=== PATIENT | male | born 1940 | race Hispanic/Latino ===

== ENCOUNTER → 2018-01-10 | Outpatient (CLI) | payer MEDICARE, OTHER ==
[~2018-01-10] VITALS: Ht 165.1 cm; Wt 86.2 kg
[~2018-01-10] MED LIST: REGADENOSON 0.4 MG/5 ML PF SYG IVP SCH
== END | disposition home or self-care (01) ==
LOC: SHCH 09:08
PROVIDERS: ATTEND Internal Medicine Cardiovascular Disease
DX: I21.4 Non-ST elevation (NSTEMI) myocardial infarction (principal)
CPT/HCPCS: 78452; 93017; 96374; A9500 ×2; J2785

== ENCOUNTER 2021-03-19 19:09 | Inpatient (IN) | payer MEDICARE, OTHER ==
[~2021-03-19] VITALS: Ht 165.1 cm; Wt 89.9 kg
[2021-03-19] MEDS ORDERED: HYDROCODONE/ACETAMINOPHEN 10/325 MG TAB PO SCH (20:00)
[2021-03-19 20:21] LABS: BASOPHILS % (AUTO) 0.6 % (0.0-5.0); EOSINOPHILS % (AUTO) 6.9 % (0.0-8.0); HEMATOCRIT 42.5 % (42-54); LYMPHOCYTES % (AUTO) 16.2 % (21.0-51.0); MEAN CORPUSCULAR HEMOGLOBIN 30.3 pg (27.0-33.0); MEAN CORPUSCULAR HGB CONC 32.2 g/dL (32.0-36.0); MONOCYTES % (AUTO) 9.1 % (3.0-13.0); NEUTROPHILS % (AUTO) 66.8 % (40.0-77.0); PLATELET COUNT (AUTO) 243 K/uL (130-400); RED BLOOD CELL COUNT(AUTO) 4.52 MIL/uL (4.50-6.20); RED CELL DISTRIBUTION WIDTH 13.3 % (11.0-15.5); WHITE BLOOD COUNT (AUTO) 12.1 K/uL (4.8-10.8)
[2021-03-19 20:33] LABS: CREATININE 1.8 mg/dL (0.5-1.5); POTASSIUM 4.4 mmol/L (3.5-5.1)
[2021-03-19 20:39] LABS: ALBUMIN 3.5 g/dL (3.5-5.0); BILIRUBIN,TOTAL 0.2 mg/dL (0.2-1.0); TOTAL PROTEIN, SERUM 7.7 g/dL (6.0-8.3)
[2021-03-19] MEDS: TETANUS/DIPHTHERIA TOXOID [ADULT] 0.5 ML VIAL IM SCH (20:48)
[2021-03-19] MEDS: ZOSYN 3.375GM +NS 50ML IV SCH (20:49)
[2021-03-19] MEDS ORDERED: CEPH500B PO (21:08)
[2021-03-19] MEDS ORDERED: NITROGLYCERIN 1GM OINT 1 INCH/1GM TD ONE ×2 (22:59→23:00)
[2021-03-19] MEDS ORDERED: ASPIRIN 325MG TAB ONE (22:59)
[2021-03-19] MEDS ORDERED: ASPIRIN 325MG TAB PO ONE (23:00)
[2021-03-20] MEDS ORDERED: 0.9%NACL 1000ML 1,000 ML IV SCH
[2021-03-20] MEDS ORDERED: ONDANSETRON 4MG INJ IV PRN
[2021-03-20] MEDS ORDERED: HYDRALAZINE 20MG/ML VIAL IV PRN
[2021-03-20] MEDS ORDERED: GUAIFENESIN-DM 200/20 MG 10 ML PO PRN
[2021-03-20] MEDS ORDERED: ACETAMINOPHEN 325 MG TAB PO PRN
[2021-03-20] MEDS ORDERED: NITROGLYCERIN 0.4 MG SL TAB SL PRN
[2021-03-20] MEDS ORDERED: MORPHINE 2 MG SYG IV PRN
[2021-03-20] MEDS: ZOSYN 3.375GM +NS 50ML IV SCH ×3 (05:40→21:29)
[2021-03-20 06:45] LABS: BASOPHILS % (AUTO) 0.5 % (0.0-5.0); EOSINOPHILS % (AUTO) 8.7 % (0.0-8.0); HEMATOCRIT 37.3 % (42-54); LYMPHOCYTES % (AUTO) 14.9 % (21.0-51.0); MEAN CORPUSCULAR HEMOGLOBIN 30.5 pg (27.0-33.0); MEAN CORPUSCULAR HGB CONC 31.6 g/dL (32.0-36.0); MEAN CORPUSCULAR VOLUME 96.4 fL (79-99); MONOCYTES % (AUTO) 9.3 % (3.0-13.0); PLATELET COUNT (AUTO) 180 K/uL (130-400); RED BLOOD CELL COUNT(AUTO) 3.87 MIL/uL (4.50-6.20); RED CELL DISTRIBUTION WIDTH 13.5 % (11.0-15.5)
[2021-03-20 06:56] LABS: HEMOGLOBIN A1C 8.3 % (4.0-6.0)
[2021-03-20] MEDS: INSULIN HUMULIN R 100 UNIT/ML 3ML SQ SCH ×4 (07:30→21:50)
[2021-03-20 07:34] LABS: BILIRUBIN,TOTAL 0.3 mg/dL (0.2-1.0); CREATININE 1.7 mg/dL (0.5-1.5); MAGNESIUM 1.9 mg/dL (1.80-2.40); POTASSIUM 4.8 mmol/L (3.5-5.1); TOTAL PROTEIN, SERUM 5.9 g/dL (6.0-8.3)
[2021-03-20 07:55] LABS: APPEARANCE,URINE Clear (CLEAR); BILIRUBIN,URINE Negative (NEGATIVE); COLOR,URINE Yellow (YELLOW); GLUCOSE, URINE (UA) 500 mg/dL (NEGATIVE); KETONES,URINE Negative (NEGATIVE); LEUKOCYTE ESTERASE ,URINE Negative (NEGATIVE); NITRATE,URINE Negative (NEGATIVE); OCCULT BLOOD,URINE Negative (NEGATIVE); PH,URINE 5.5 (5.0-8.0); PROTEIN,URINE POS 2+ mg/dL (NEGATIVE); UROBILINOGEN,URINE 0.2 mg/dL (0.2-1.0)
[2021-03-20 08:05] LABS: BACTERIA,URINE None Seen /HPF (None Seen); RBC,URINE 0-1 /HPF (0-1); SQUAMOUS EPITHELIAL CELL,UR 0-2 /HPF (0-2); WBC,URINE 0-1 /HPF (0-1)
[2021-03-20] MEDS: FAMOTIDINE 20MG VIAL IV SCH ×2 (09:08→21:29)
[2021-03-20] MEDS: HEPARIN 5,000 UNIT VIAL SQ SCH ×3 (09:08→21:50)
[2021-03-20] MEDS ORDERED: 0.9% NACL 250ML IVPB SCH (10:30)
[2021-03-20] MEDS ORDERED: DOXYCYCLINE 100MG IVPB (VIAL) IVPB SCH (10:30)
[2021-03-20] MEDS: 0.9% NACL 250ML 250 ML IV SCH ×2 (12:13→21:29)
[2021-03-20] MEDS: DOXYCYCLINE 100MG+NS 250ML IV SCH ×2 (12:13→21:29)
[2021-03-20] MEDS ORDERED: 0.9%NACL 50ML 50 ML IV ONE (14:29)
[2021-03-20 16:30] VITALS: BP 157/66
[2021-03-20] MEDS: CLOPIDOGREL 75MG TAB PO SCH (18:59)
[2021-03-20 20:00] VITALS: BP 157/68
[2021-03-20] MEDS: TETANUS/DIPHTHERIA TOXOID [ADULT] 0.5 ML VIAL IM SCH (20:00)
[2021-03-20] MEDS: METOPROLOL TARTRATE 50 MG TAB PO SCH (21:29)
[2021-03-20] MEDS ORDERED: INSULIN GLARGINE 100 UNITS/ML 10 ML VIAL SQ ONE (22:30)
[2021-03-20] MEDS ORDERED: AMLODIPINE 5 MG TAB PO ONE (22:30)
[2021-03-20 23:57] VITALS: BP 130/61
[2021-03-21 04:00] VITALS: BP 143/65
[2021-03-21] MEDS ORDERED: METF-446 PO (04:04)
[2021-03-21] MEDS ORDERED: FOLI1TAB85 PO (04:04)
[2021-03-21] MEDS ORDERED: TAMS-1 PO (04:04)
[2021-03-21] MEDS ORDERED: LISI40TA9 PO (04:04)
[2021-03-21] MEDS ORDERED: [UNRECOGNIZED DRUG - CODE] PO (04:04)
[2021-03-21] MEDS ORDERED: METO50TA18 PO (04:04)
[2021-03-21] MEDS ORDERED: FENO135C4 PO (04:04)
[2021-03-21] MEDS ORDERED: CLOP75TA32 PO (04:04)
[2021-03-21] MEDS: INSULIN HUMULIN R 100 UNIT/ML 3ML SQ SCH ×5 (05:31→21:06)
[2021-03-21] MEDS: ZOSYN 3.375GM +NS 50ML IV SCH ×3 (06:14→20:54)
[2021-03-21 06:36] LABS: BASOPHILS % (AUTO) 0.8 % (0.0-5.0); HEMATOCRIT 36.9 % (42-54); LYMPHOCYTES % (AUTO) 12.9 % (21.0-51.0); MEAN CORPUSCULAR HEMOGLOBIN 30.2 pg (27.0-33.0); MEAN CORPUSCULAR HGB CONC 32.5 g/dL (32.0-36.0); MEAN CORPUSCULAR VOLUME 92.9 fL (79-99); NEUTROPHILS % (AUTO) 67.7 % (40.0-77.0); PLATELET COUNT (AUTO) 195 K/uL (130-400); RED BLOOD CELL COUNT(AUTO) 3.97 MIL/uL (4.50-6.20); RED CELL DISTRIBUTION WIDTH 13.3 % (11.0-15.5)
[2021-03-21 06:53] LABS: CREATININE 1.6 mg/dL (0.5-1.5); POTASSIUM 4.2 mmol/L (3.5-5.1)
[2021-03-21 08:00] VITALS: BP 151/67
[2021-03-21] MEDS: FENOFIBRIC ACID 135 MG PO SCH (09:00)
[2021-03-21] MEDS: CLOPIDOGREL 75MG TAB PO SCH (09:38)
[2021-03-21] MEDS: METOPROLOL TARTRATE 50 MG TAB PO SCH ×2 (09:38→20:55)
[2021-03-21] MEDS: FAMOTIDINE 20MG VIAL IV SCH ×2 (09:38→20:55)
[2021-03-21] MEDS: DOXYCYCLINE 100MG+NS 250ML IV SCH ×2 (09:38→20:54)
[2021-03-21] MEDS: HEPARIN 5,000 UNIT VIAL SQ SCH ×3 (09:52→21:05)
[2021-03-21] MEDS: 0.9% NACL 250ML 250 ML IV SCH ×2 (10:48→20:54)
[2021-03-21 12:00] VITALS: BP 148/67
[2021-03-21] MEDS: AMLODIPINE 5 MG TAB PO SCH ×2 (12:31→20:55)
[2021-03-21] MEDS: Vitamin B Complex/Vit C/Folic Acid PO SCH (12:31)
[2021-03-21] MEDS: DIGOXIN 125 MCG TABLET PO SCH (15:53)
[2021-03-21 16:00] VITALS: BP 140/65
[2021-03-21 20:00] VITALS: BP 140/67
[2021-03-21] MEDS: TAMSULOSIN HCL 0.4 MG CAP.ER.24H PO SCH (20:55)
[2021-03-21] MEDS ORDERED: TIMOLOL MALEATE 0.5% 5 ML BOTTLE OS SCH (21:00)
[2021-03-21] MEDS: INSULIN GLARGINE 100 UNITS/ML 10 ML VIAL SQ SCH (21:07)
[2021-03-22] VITALS: BP 118/57
[2021-03-22 04:00] VITALS: BP 127/58
[2021-03-22] MEDS: ZOSYN 3.375GM +NS 50ML IV SCH ×3 (05:14→21:00)
[2021-03-22] MEDS: INSULIN HUMULIN R 100 UNIT/ML 3ML SQ SCH ×6 (06:33→21:04)
[2021-03-22] MEDS: LACTULOSE 20 GM/30 ML UDCUP PO PRN (07:47)
[2021-03-22 08:00] VITALS: BP 137/64
[2021-03-22] MEDS: FENOFIBRIC ACID 135 MG PO SCH (09:00)
[2021-03-22] MEDS: HEPARIN 5,000 UNIT VIAL SQ SCH ×3 (10:30→21:02)
[2021-03-22] MEDS: DOXYCYCLINE 100MG+NS 250ML IV SCH ×2 (10:34→21:05)
[2021-03-22] MEDS: CLOPIDOGREL 75MG TAB PO SCH (10:35)
[2021-03-22] MEDS: METOPROLOL TARTRATE 50 MG TAB PO SCH ×2 (10:35→21:05)
[2021-03-22] MEDS: AMLODIPINE 5 MG TAB PO SCH ×2 (10:35→21:05)
[2021-03-22] MEDS: Vitamin B Complex/Vit C/Folic Acid PO SCH (10:36)
[2021-03-22] MEDS: 0.9% NACL 250ML 250 ML IV SCH ×2 (10:36→21:05)
[2021-03-22] MEDS: FAMOTIDINE 20MG VIAL IV SCH ×2 (10:45→21:05)
[2021-03-22 11:56] VITALS: BP 102/51
[2021-03-22] MEDS: DIGOXIN 125 MCG TABLET PO SCH (16:02)
[2021-03-22 16:14] VITALS: BP 141/61
[2021-03-22 20:00] VITALS: BP 158/69
[2021-03-22] MEDS: INSULIN GLARGINE 100 UNITS/ML 10 ML VIAL SQ SCH (21:03)
[2021-03-22] MEDS: TAMSULOSIN HCL 0.4 MG CAP.ER.24H PO SCH (21:05)
[2021-03-23] VITALS (14 sets, daily range): BP systolic 110–160; BP diastolic 46–73
[2021-03-23] MEDS: ZOSYN 3.375GM +NS 50ML IV SCH ×3 (04:28→21:35)
[2021-03-23] MEDS: INSULIN HUMULIN R 100 UNIT/ML 3ML SQ SCH ×7 (05:31→21:30)
[2021-03-23 07:11] LABS: BASOPHILS % (AUTO) 0.9 % (0.0-5.0); EOSINOPHILS % (AUTO) 13.2 % (0.0-8.0); HEMATOCRIT 34.5 % (42-54); LYMPHOCYTES % (AUTO) 13.6 % (21.0-51.0); MEAN CORPUSCULAR HEMOGLOBIN 30.7 pg (27.0-33.0); MEAN CORPUSCULAR HGB CONC 32.8 g/dL (32.0-36.0); MEAN CORPUSCULAR VOLUME 93.8 fL (79-99); MONOCYTES % (AUTO) 11.8 % (3.0-13.0); PLATELET COUNT (AUTO) 198 K/uL (130-400); RED BLOOD CELL COUNT(AUTO) 3.68 MIL/uL (4.50-6.20); RED CELL DISTRIBUTION WIDTH 13.2 % (11.0-15.5); WHITE BLOOD COUNT (AUTO) 7.9 K/uL (4.8-10.8)
[2021-03-23 07:31] LABS: CREATININE 1.8 mg/dL (0.5-1.5); POTASSIUM 4.1 mmol/L (3.5-5.1)
[2021-03-23] MEDS: FENOFIBRIC ACID 135 MG PO SCH (07:35)
[2021-03-23] MEDS: DOXYCYCLINE 100MG+NS 250ML IV SCH ×2 (08:03→21:34)
[2021-03-23] MEDS: CLOPIDOGREL 75MG TAB PO SCH (08:04)
[2021-03-23] MEDS: AMLODIPINE 5 MG TAB PO SCH ×2 (08:04→21:35)
[2021-03-23] MEDS: FAMOTIDINE 20MG VIAL IV SCH ×2 (08:04→21:36)
[2021-03-23] MEDS: METOPROLOL TARTRATE 50 MG TAB PO SCH ×2 (08:04→21:35)
[2021-03-23] MEDS: 0.9% NACL 250ML 250 ML IV SCH ×2 (08:04→21:35)
[2021-03-23] MEDS: Vitamin B Complex/Vit C/Folic Acid PO SCH (08:04)
[2021-03-23] MEDS: HEPARIN 5,000 UNIT VIAL SQ SCH ×3 (08:07→21:34)
[2021-03-23] MEDS ORDERED: HEPARIN 10,000 UNIT/10ML (1,000 UNIT/ML) VIAL ONE (16:15)
[2021-03-23] MEDS ORDERED: SODIUM BICARB 50MEQ 50ML VIAL 50 ML ONE (16:15)
[2021-03-23] MEDS ORDERED: NITROGLYCERIN 50MG VIAL IV ONE (16:15)
[2021-03-23] MEDS ORDERED: IODIXANOL 320 MG/ML 100 ML VIAL ONE (16:15)
[2021-03-23] MEDS ORDERED: FENTANYL CITRATE PF 50 MCG/1 ML 2ML VIAL ONE (16:16)
[2021-03-23] MEDS ORDERED: MIDAZOLAM HCL 1 MG/ML 2ML VIAL ONE (16:16)
[2021-03-23] MEDS ORDERED: LIDOCAINE HCL 400MG/20ML VIAL ONE (16:16)
[2021-03-23] MEDS ORDERED: INSULIN HUMULIN R 100 UNIT/ML 3ML SQ SCH (17:00)
[2021-03-23] MEDS ORDERED: LABETALOL 20MG SYG IV ONE (17:20)
[2021-03-23] MEDS ORDERED: 0.9%NACL 1000ML 1,000 ML IV SCH (18:00)
[2021-03-23] MEDS: DIGOXIN 125 MCG TABLET PO SCH (18:27)
[2021-03-23] MEDS: INSULIN GLARGINE 100 UNITS/ML 10 ML VIAL SQ SCH (21:33)
[2021-03-23] MEDS: TAMSULOSIN HCL 0.4 MG CAP.ER.24H PO SCH (21:35)
[2021-03-24] VITALS (22 sets, daily range): BP systolic 118–169; BP diastolic 56–83
[2021-03-24] MEDS: ZOSYN 3.375GM +NS 50ML IV SCH ×3 (04:59→22:06)
[2021-03-24 05:22] LABS: BASOPHILS % (AUTO) 0.6 % (0.0-5.0); EOSINOPHILS % (AUTO) 12.9 % (0.0-8.0); HEMATOCRIT 33.6 % (42-54); MEAN CORPUSCULAR HEMOGLOBIN 30.7 pg (27.0-33.0); MEAN CORPUSCULAR HGB CONC 31.8 g/dL (32.0-36.0); MEAN CORPUSCULAR VOLUME 96.3 fL (79-99); MONOCYTES % (AUTO) 13.3 % (3.0-13.0); NEUTROPHILS % (AUTO) 58.7 % (40.0-77.0); PLATELET COUNT (AUTO) 186 K/uL (130-400); RED BLOOD CELL COUNT(AUTO) 3.49 MIL/uL (4.50-6.20); RED CELL DISTRIBUTION WIDTH 13.5 % (11.0-15.5); WHITE BLOOD COUNT (AUTO) 7.8 K/uL (4.8-10.8)
[2021-03-24 05:37] LABS: CREATININE 1.8 mg/dL (0.5-1.5); POTASSIUM 3.6 mmol/L (3.5-5.1); URIC ACID 3.5 mg/dL (2.6-7.2)
[2021-03-24] MEDS: INSULIN HUMULIN R 100 UNIT/ML 3ML SQ SCH ×7 (05:42→21:00)
[2021-03-24] MEDS: FENOFIBRIC ACID 135 MG PO SCH (09:00)
[2021-03-24] MEDS: Vitamin B Complex/Vit C/Folic Acid PO SCH (10:38)
[2021-03-24] MEDS: DOXYCYCLINE 100MG+NS 250ML IV SCH ×2 (10:38→22:05)
[2021-03-24] MEDS: FAMOTIDINE 20MG VIAL IV SCH ×2 (10:38→22:03)
[2021-03-24] MEDS: AMLODIPINE 5 MG TAB PO SCH ×2 (10:39→22:03)
[2021-03-24] MEDS: CLOPIDOGREL 75MG TAB PO SCH (10:39)
[2021-03-24] MEDS: METOPROLOL TARTRATE 50 MG TAB PO SCH ×2 (10:39→22:03)
[2021-03-24] MEDS: 0.9% NACL 250ML 250 ML IV SCH ×2 (10:48→22:05)
[2021-03-24] MEDS: HEPARIN 5,000 UNIT VIAL SQ SCH ×2 (13:14→22:08)
[2021-03-24] MEDS ORDERED: FENTANYL CITRATE PF 50 MCG/1 ML 2ML VIAL ONE (16:14)
[2021-03-24] MEDS ORDERED: MIDAZOLAM HCL 1 MG/ML 2ML VIAL ONE (16:14)
[2021-03-24] MEDS ORDERED: 0.9%NACL 1000ML 1,000 ML IV ONE (16:21)
[2021-03-24] MEDS ORDERED: BUPIVACAINE/PF 0.5% 10ML VIAL ONE (16:39)
[2021-03-24] MEDS ORDERED: LIDOCAINE HCL 1% MDV 50ML VIAL ONE (16:40)
[2021-03-24] MEDS: TAMSULOSIN HCL 0.4 MG CAP.ER.24H PO SCH (22:03)
[2021-03-24] MEDS: INSULIN GLARGINE 100 UNITS/ML 10 ML VIAL SQ SCH (22:04)
[2021-03-25 04:15] VITALS: BP 124/67
[2021-03-25] MEDS: ZOSYN 3.375GM +NS 50ML IV SCH ×3 (05:45→20:54)
[2021-03-25] MEDS: HEPARIN 5,000 UNIT VIAL SQ SCH ×3 (05:46→19:14)
[2021-03-25 06:21] LABS: BASOPHILS % (AUTO) 0.7 % (0.0-5.0); EOSINOPHILS % (AUTO) 10.8 % (0.0-8.0); HEMATOCRIT 34.6 % (42-54); LYMPHOCYTES % (AUTO) 13.3 % (21.0-51.0); MEAN CORPUSCULAR HEMOGLOBIN 30.4 pg (27.0-33.0); MEAN CORPUSCULAR HGB CONC 32.4 g/dL (32.0-36.0); MEAN CORPUSCULAR VOLUME 93.8 fL (79-99); MONOCYTES % (AUTO) 10.6 % (3.0-13.0); NEUTROPHILS % (AUTO) 64.4 % (40.0-77.0); PLATELET COUNT (AUTO) 176 K/uL (130-400); RED BLOOD CELL COUNT(AUTO) 3.69 MIL/uL (4.50-6.20); RED CELL DISTRIBUTION WIDTH 13.5 % (11.0-15.5); WHITE BLOOD COUNT (AUTO) 10.2 K/uL (4.8-10.8)
[2021-03-25 06:57] LABS: CREATININE 1.6 mg/dL (0.5-1.5); POTASSIUM 3.7 mmol/L (3.5-5.1)
[2021-03-25] MEDS: INSULIN HUMULIN R 100 UNIT/ML 3ML SQ SCH ×7 (07:40→20:46)
[2021-03-25 07:44] VITALS: BP 153/74
[2021-03-25] MEDS: FENOFIBRIC ACID 135 MG PO SCH (09:00)
[2021-03-25] MEDS: FAMOTIDINE 20MG VIAL IV SCH ×2 (09:26→20:54)
[2021-03-25] MEDS: CLOPIDOGREL 75MG TAB PO SCH (09:27)
[2021-03-25] MEDS: AMLODIPINE 5 MG TAB PO SCH ×2 (09:27→20:54)
[2021-03-25] MEDS: METOPROLOL TARTRATE 50 MG TAB PO SCH ×2 (09:30→20:54)
[2021-03-25] MEDS: 0.9% NACL 250ML 250 ML IV SCH ×2 (09:30→20:54)
[2021-03-25] MEDS: Vitamin B Complex/Vit C/Folic Acid PO SCH (09:30)
[2021-03-25] MEDS: DOXYCYCLINE 100MG+NS 250ML IV SCH ×2 (09:30→20:54)
[2021-03-25] MEDS: LACTULOSE 20 GM/30 ML UDCUP PO PRN (10:24)
[2021-03-25 12:23] VITALS: BP 142/72
[2021-03-25 15:09] VITALS: BP 133/81
[2021-03-25] MEDS: DIGOXIN 125 MCG TABLET PO SCH (15:57)
[2021-03-25 20:10] VITALS: BP 150/80
[2021-03-25] MEDS: TAMSULOSIN HCL 0.4 MG CAP.ER.24H PO SCH (20:54)
[2021-03-25] MEDS: INSULIN GLARGINE 100 UNITS/ML 10 ML VIAL SQ SCH (20:59)
[2021-03-25 23:59] VITALS: BP 148/64
[2021-03-26 04:02] VITALS: BP 106/61
[2021-03-26] MEDS: ZOSYN 3.375GM +NS 50ML IV SCH ×3 (04:36→20:16)
[2021-03-26] MEDS: INSULIN HUMULIN R 100 UNIT/ML 3ML SQ SCH ×7 (05:39→20:21)
[2021-03-26] MEDS: HEPARIN 5,000 UNIT VIAL SQ SCH ×3 (05:40→22:23)
[2021-03-26] MEDS: ACETAMINOPHEN 325 MG TAB PO PRN ×2 (05:56→20:17)
[2021-03-26 07:19] LABS: BASOPHILS % (AUTO) 0.7 % (0.0-5.0); EOSINOPHILS % (AUTO) 8.3 % (0.0-8.0); HEMATOCRIT 34.8 % (42-54); LYMPHOCYTES % (AUTO) 12.8 % (21.0-51.0); MEAN CORPUSCULAR HEMOGLOBIN 30.5 pg (27.0-33.0); MEAN CORPUSCULAR HGB CONC 31.6 g/dL (32.0-36.0); MEAN CORPUSCULAR VOLUME 96.4 fL (79-99); MONOCYTES % (AUTO) 12.4 % (3.0-13.0); NEUTROPHILS % (AUTO) 65.3 % (40.0-77.0); PLATELET COUNT (AUTO) 172 K/uL (130-400); RED BLOOD CELL COUNT(AUTO) 3.61 MIL/uL (4.50-6.20); RED CELL DISTRIBUTION WIDTH 13.7 % (11.0-15.5)
[2021-03-26 07:28] LABS: CREATININE 1.8 mg/dL (0.5-1.5); POTASSIUM 3.2 mmol/L (3.5-5.1)
[2021-03-26 07:30] VITALS: BP 130/99
[2021-03-26] MEDS: DOXYCYCLINE 100MG+NS 250ML IV SCH ×2 (08:08→20:16)
[2021-03-26] MEDS: 0.9% NACL 250ML 250 ML IV SCH ×2 (08:08→20:16)
[2021-03-26] MEDS: CLOPIDOGREL 75MG TAB PO SCH (08:09)
[2021-03-26] MEDS: FAMOTIDINE 20MG VIAL IV SCH ×2 (08:09→20:16)
[2021-03-26] MEDS: METOPROLOL TARTRATE 50 MG TAB PO SCH ×2 (08:09→20:17)
[2021-03-26] MEDS: AMLODIPINE 5 MG TAB PO SCH ×2 (08:09→20:17)
[2021-03-26] MEDS: Vitamin B Complex/Vit C/Folic Acid PO SCH (08:09)
[2021-03-26] MEDS: FENOFIBRIC ACID 135 MG PO SCH (09:00)
[2021-03-26 11:00] VITALS: BP 135/59
[2021-03-26] MEDS: DIGOXIN 125 MCG TABLET PO SCH (15:22)
[2021-03-26 15:56] VITALS: BP 151/56
[2021-03-26 19:08] VITALS: BP 157/78
[2021-03-26] MEDS: TAMSULOSIN HCL 0.4 MG CAP.ER.24H PO SCH (20:17)
[2021-03-26] MEDS: INSULIN GLARGINE 100 UNITS/ML 10 ML VIAL SQ SCH (20:23)
[2021-03-26 23:19] VITALS: BP 139/65
[2021-03-27 04:17] VITALS: BP 127/56
[2021-03-27] MEDS: ZOSYN 3.375GM +NS 50ML IV SCH ×3 (04:26→19:45)
[2021-03-27] MEDS: HEPARIN 5,000 UNIT VIAL SQ SCH ×3 (05:45→22:54)
[2021-03-27] MEDS: INSULIN HUMULIN R 100 UNIT/ML 3ML SQ SCH ×8 (05:54→19:45)
[2021-03-27 06:22] LABS: BASOPHILS % (AUTO) 0.5 % (0.0-5.0); EOSINOPHILS % (AUTO) 7.2 % (0.0-8.0); HEMATOCRIT 33.9 % (42-54); LYMPHOCYTES % (AUTO) 13.1 % (21.0-51.0); MEAN CORPUSCULAR HEMOGLOBIN 30.5 pg (27.0-33.0); MEAN CORPUSCULAR HGB CONC 31.6 g/dL (32.0-36.0); MEAN CORPUSCULAR VOLUME 96.6 fL (79-99); MONOCYTES % (AUTO) 12.1 % (3.0-13.0); NEUTROPHILS % (AUTO) 66.6 % (40.0-77.0); PLATELET COUNT (AUTO) 173 K/uL (130-400); RED BLOOD CELL COUNT(AUTO) 3.51 MIL/uL (4.50-6.20); RED CELL DISTRIBUTION WIDTH 13.8 % (11.0-15.5); WHITE BLOOD COUNT (AUTO) 10.9 K/uL (4.8-10.8)
[2021-03-27 06:32] LABS: CREATININE 1.7 mg/dL (0.5-1.5); POTASSIUM 3.5 mmol/L (3.5-5.1)
[2021-03-27] MEDS: FENOFIBRIC ACID 135 MG PO SCH (07:44)
[2021-03-27 08:10] VITALS: BP 140/58
[2021-03-27] MEDS: FAMOTIDINE 20MG VIAL IV SCH ×2 (09:24→19:45)
[2021-03-27] MEDS: AMLODIPINE 5 MG TAB PO SCH ×2 (09:24→19:44)
[2021-03-27] MEDS: METOPROLOL TARTRATE 50 MG TAB PO SCH ×2 (09:25→19:44)
[2021-03-27] MEDS: DOXYCYCLINE 100MG+NS 250ML IV SCH ×2 (09:25→19:45)
[2021-03-27] MEDS: 0.9% NACL 250ML 250 ML IV SCH ×2 (09:25→19:45)
[2021-03-27] MEDS: Vitamin B Complex/Vit C/Folic Acid PO SCH (09:25)
[2021-03-27] MEDS: CLOPIDOGREL 75MG TAB PO SCH (09:25)
[2021-03-27 11:20] VITALS: BP 155/76
[2021-03-27] MEDS: DIGOXIN 125 MCG TABLET PO SCH (15:44)
[2021-03-27 16:06] VITALS: BP 156/78
[2021-03-27] MEDS: TAMSULOSIN HCL 0.4 MG CAP.ER.24H PO SCH (19:44)
[2021-03-27] MEDS: INSULIN GLARGINE 100 UNITS/ML 10 ML VIAL SQ SCH (19:49)
[2021-03-27 20:37] VITALS: BP 144/61
[2021-03-27 23:23] VITALS: BP 130/67
[2021-03-28 04:30] VITALS: BP 126/60
[2021-03-28] MEDS: ZOSYN 3.375GM +NS 50ML IV SCH (05:05)
[2021-03-28] MEDS: HEPARIN 5,000 UNIT VIAL SQ SCH ×3 (05:56→21:12)
[2021-03-28] MEDS: INSULIN HUMULIN R 100 UNIT/ML 3ML SQ SCH ×8 (06:05→20:46)
[2021-03-28 06:52] LABS: BASOPHILS % (AUTO) 0.6 % (0.0-5.0); EOSINOPHILS % (AUTO) 6.7 % (0.0-8.0); HEMATOCRIT 32.5 % (42-54); LYMPHOCYTES % (AUTO) 14.7 % (21.0-51.0); MEAN CORPUSCULAR HEMOGLOBIN 30.5 pg (27.0-33.0); MEAN CORPUSCULAR HGB CONC 32.6 g/dL (32.0-36.0); MEAN CORPUSCULAR VOLUME 93.7 fL (79-99); MONOCYTES % (AUTO) 8.8 % (3.0-13.0); NEUTROPHILS % (AUTO) 68.7 % (40.0-77.0); PLATELET COUNT (AUTO) 180 K/uL (130-400); RED BLOOD CELL COUNT(AUTO) 3.47 MIL/uL (4.50-6.20); RED CELL DISTRIBUTION WIDTH 13.8 % (11.0-15.5); WHITE BLOOD COUNT (AUTO) 10.9 K/uL (4.8-10.8)
[2021-03-28 07:03] LABS: POTASSIUM 3.4 mmol/L (3.5-5.1)
[2021-03-28 08:08] VITALS: BP 134/65
[2021-03-28] MEDS: CLOPIDOGREL 75MG TAB PO SCH (08:25)
[2021-03-28] MEDS: METOPROLOL TARTRATE 50 MG TAB PO SCH ×2 (08:25→20:52)
[2021-03-28] MEDS: Vitamin B Complex/Vit C/Folic Acid PO SCH (08:25)
[2021-03-28] MEDS: AMLODIPINE 5 MG TAB PO SCH ×2 (08:26→20:52)
[2021-03-28] MEDS: FAMOTIDINE 20MG VIAL IV SCH ×2 (08:26→20:52)
[2021-03-28] MEDS: FENOFIBRIC ACID 135 MG PO SCH (08:26)
[2021-03-28] MEDS: 0.9% NACL 250ML 250 ML IV SCH (08:26)
[2021-03-28] MEDS: DOXYCYCLINE 100MG+NS 250ML IV SCH (08:26)
[2021-03-28 11:01] VITALS: BP 156/75
[2021-03-28] MEDS: CEFTRIAXONE 1G VIAL IVP SCH (13:21)
[2021-03-28 15:55] VITALS: BP 151/67
[2021-03-28] MEDS: DIGOXIN 125 MCG TABLET PO SCH (16:45)
[2021-03-28 19:46] VITALS: BP 170/79
[2021-03-28] MEDS: TAMSULOSIN HCL 0.4 MG CAP.ER.24H PO SCH (20:52)
[2021-03-28] MEDS: INSULIN GLARGINE 100 UNITS/ML 10 ML VIAL SQ SCH (20:53)
[2021-03-28 23:20] VITALS: BP 150/67
[2021-03-29 03:27] VITALS: BP 134/60
[2021-03-29] MEDS: HEPARIN 5,000 UNIT VIAL SQ SCH ×3 (05:25→21:18)
[2021-03-29] MEDS: INSULIN HUMULIN R 100 UNIT/ML 3ML SQ SCH ×7 (06:35→20:21)
[2021-03-29 07:15] LABS: BASOPHILS % (AUTO) 0.7 % (0.0-5.0); HEMATOCRIT 34.5 % (42-54); LYMPHOCYTES % (AUTO) 14.3 % (21.0-51.0); MEAN CORPUSCULAR HEMOGLOBIN 30.6 pg (27.0-33.0); MEAN CORPUSCULAR HGB CONC 32.5 g/dL (32.0-36.0); MEAN CORPUSCULAR VOLUME 94.3 fL (79-99); MONOCYTES % (AUTO) 9.5 % (3.0-13.0); NEUTROPHILS % (AUTO) 70.1 % (40.0-77.0); PLATELET COUNT (AUTO) 223 K/uL (130-400); RED BLOOD CELL COUNT(AUTO) 3.66 MIL/uL (4.50-6.20); RED CELL DISTRIBUTION WIDTH 13.7 % (11.0-15.5); WHITE BLOOD COUNT (AUTO) 10.2 K/uL (4.8-10.8)
[2021-03-29 07:28] LABS: CREATININE 1.6 mg/dL (0.5-1.5); POTASSIUM 3.2 mmol/L (3.5-5.1)
[2021-03-29 07:42] VITALS: BP 153/59
[2021-03-29] MEDS: Vitamin B Complex/Vit C/Folic Acid PO SCH (07:58)
[2021-03-29] MEDS: FAMOTIDINE 20MG VIAL IV SCH ×2 (07:58→20:19)
[2021-03-29] MEDS: CLOPIDOGREL 75MG TAB PO SCH (07:59)
[2021-03-29] MEDS: AMLODIPINE 5 MG TAB PO SCH ×2 (07:59→20:19)
[2021-03-29] MEDS: METOPROLOL TARTRATE 50 MG TAB PO SCH ×2 (07:59→20:19)
[2021-03-29] MEDS: FENOFIBRIC ACID 135 MG PO SCH (08:00)
[2021-03-29] MEDS: KCL 20 MEQ ERTAB PO SCH (09:34)
[2021-03-29 11:04] VITALS: BP 147/68
[2021-03-29] MEDS: CEFTRIAXONE 1G VIAL IVP SCH (12:39)
[2021-03-29 16:00] VITALS: BP 163/76
[2021-03-29] MEDS: DIGOXIN 125 MCG TABLET PO SCH (16:10)
[2021-03-29 20:14] VITALS: BP 176/82
[2021-03-29] MEDS: TAMSULOSIN HCL 0.4 MG CAP.ER.24H PO SCH (20:19)
[2021-03-29] MEDS: INSULIN GLARGINE 100 UNITS/ML 10 ML VIAL SQ SCH (20:20)
[2021-03-29 23:37] VITALS: BP 141/68
[2021-03-30 04:34] VITALS: BP 147/73
[2021-03-30] MEDS: INSULIN HUMULIN R 100 UNIT/ML 3ML SQ SCH ×6 (05:27→16:28)
[2021-03-30] MEDS: HEPARIN 5,000 UNIT VIAL SQ SCH ×2 (05:27→14:13)
[2021-03-30 06:55] LABS: CREATININE 1.5 mg/dL (0.5-1.5); MAGNESIUM 1.8 mg/dL (1.80-2.40); POTASSIUM 3.2 mmol/L (3.5-5.1)
[2021-03-30 07:30] VITALS: BP 182/82
[2021-03-30] MEDS: Vitamin B Complex/Vit C/Folic Acid PO SCH (08:10)
[2021-03-30] MEDS: FAMOTIDINE 20MG VIAL IV SCH (08:11)
[2021-03-30] MEDS: CLOPIDOGREL 75MG TAB PO SCH (08:11)
[2021-03-30] MEDS: METOPROLOL TARTRATE 50 MG TAB PO SCH (08:11)
[2021-03-30] MEDS: KCL 20 MEQ ERTAB PO SCH (08:11)
[2021-03-30] MEDS: AMLODIPINE 5 MG TAB PO SCH (08:11)
[2021-03-30] MEDS: FENOFIBRIC ACID 135 MG PO SCH (08:12)
[2021-03-30 11:00] VITALS: BP 159/70
[2021-03-30] MEDS: CEFTRIAXONE 1G VIAL IVP SCH (11:41)
[2021-03-30 16:00] VITALS: BP 152/72
[2021-03-30] MEDS: DIGOXIN 125 MCG TABLET PO SCH (16:24)
[2021-03-30] MEDS ORDERED: POTASSIUM CHLORIDE 10MEQ SR TAB PO SCH (18:00)
[2021-03-30] MEDS ORDERED: HYDRALAZINE 25MG TABLET PO SCH (21:00)
== END 2021-03-30 18:44 | DRG 617 ==
LOC: EDH 19:09 → EDHIP 23:45 → INTOOBSV 23:45 → OBSVTOIN 23:45 → 4CH 03-20 16:41 → 4BH 03-21 18:00
PROVIDERS: ADMIT Hospitalist; ATTEND Hospitalist
PROC: B41F1ZZ Fluoroscopy of Right Lower Extremity Arteries using Low Osmolar Contrast (ICD-10-PCS; 2021-03-23)
PROC: 0Y6M0ZC Detachment at Right Foot, Partial 3rd Ray, Open Approach (ICD-10-PCS; principal; 2021-03-24 17:07)
DX: E11.69 Type 2 diabetes mellitus with other specified complication (principal); L03.115 Cellulitis of right lower limb; M86.171 Other acute osteomyelitis, right ankle and foot; E11.621 Type 2 diabetes mellitus with foot ulcer; E11.51 Type 2 diabetes mellitus with diabetic peripheral angiopathy without gangrene; N17.9 Acute kidney failure, unspecified; D64.9 Anemia, unspecified; E03.9 Hypothyroidism, unspecified; E11.22 Type 2 diabetes mellitus with diabetic chronic kidney disease; E11.42 Type 2 diabetes mellitus with diabetic polyneuropathy; E11.65 Type 2 diabetes mellitus with hyperglycemia; E66.9 Obesity, unspecified; E78.00 Pure hypercholesterolemia, unspecified; E78.5 Hyperlipidemia, unspecified; F17.210 Nicotine dependence, cigarettes, uncomplicated; I12.9 Hypertensive chronic kidney disease with stage 1 through stage 4 chronic kidney disease, or unspecified chronic kidney disease; N18.30 Chronic kidney disease, stage 3 unspecified; M19.071 Primary osteoarthritis, right ankle and foot; L97.519 Non-pressure chronic ulcer of other part of right foot with unspecified severity; K21.9 Gastro-esophageal reflux disease without esophagitis; R77.8 Other specified abnormalities of plasma proteins; Z20.822 Contact with and (suspected) exposure to COVID-19; Z68.33 Body mass index [BMI] 33.0-33.9, adult; Z79.4 Long term (current) use of insulin; Z79.02 Long term (current) use of antithrombotics/antiplatelets; Z79.84 Long term (current) use of oral hypoglycemic drugs; Z91.19 Patient's noncompliance with other medical treatment and regimen; Z83.3 Family history of diabetes mellitus; Z82.49 Family history of ischemic heart disease and other diseases of the circulatory system
CPT/HCPCS: 36247; 36415; 71045; 73630; 73718; 75710; 75716; 76770; 80048; 80053; 81001; 82948; 83036; 83605; 83735; 84100; 84145; 84484; 84550; 85025; 85651; 86140; 87040; 87070; 87076; 87077; 87088; 87186; 87205; 88305; 88307; 88311; 90714; 93005; 93306; 93356; 93925; 97039; 99156; 99157; C1893; C1894; G0378; J0696; J1644; J1815; J2250; J2543; J3010; J3490; J7030; J7050; Q9967

== ENCOUNTER 2021-04-21 17:12 | Emergency (ER) | payer OTHER ==
[~2021-04-21] VITALS: Ht 165.1 cm; Wt 82.6 kg
[~2021-04-21 17:12] MED LIST changes: +CEPH500B PO; +CLOP75TA32 PO; +FENO135C4 PO; +FOLI1TAB85 PO; +LISI40TA9 PO; +METF-446 PO; +METO50TA18 PO; -REGADENOSON 0.4 MG/5 ML PF SYG IVP SCH; +TAMS-1 PO; +[UNRECOGNIZED DRUG - CODE] PO
[2021-04-21 21:33] VITALS: BP 137/58
== END 2021-04-21 21:41 | disposition home or self-care (01) ==
LOC: EDH 17:12
DX: T87.81 Dehiscence of amputation stump (principal); E11.51 Type 2 diabetes mellitus with diabetic peripheral angiopathy without gangrene; E78.5 Hyperlipidemia, unspecified; I10 Essential (primary) hypertension; F17.210 Nicotine dependence, cigarettes, uncomplicated; Z79.84 Long term (current) use of oral hypoglycemic drugs; Z79.899 Other long term (current) drug therapy; Z89.421 Acquired absence of other right toe(s); Y83.8 Other surgical procedures as the cause of abnormal reaction of the patient, or of later complication, without mention of misadventure at the time of the procedure
CPT/HCPCS: 99281

== ENCOUNTER → 2021-08-14 | Outpatient (CLI) | payer OTHER ==
[~2021-08-14] MED LIST changes: +ASPI-1197 PO; +ATOR40TA71 PO; +BISA5TAB12 PO
== END | disposition home or self-care (01) ==
LOC: SHCH 10:12
PROVIDERS: ATTEND Student in an Organized Health Care Education/Training Program
DX: I13.10 Hypertensive heart and chronic kidney disease without heart failure, with stage 1 through stage 4 chronic kidney disease, or unspecified chronic kidney disease (principal); N18.9 Chronic kidney disease, unspecified; E78.5 Hyperlipidemia, unspecified; E66.9 Obesity, unspecified; I45.10 Unspecified right bundle-branch block
CPT/HCPCS: 93306

== ENCOUNTER 2021-08-25 15:30 | Inpatient (IN) | payer OTHER ==
[~2021-08-25] VITALS: Ht 165.1 cm; Wt 83.1 kg
[~2021-08-25 15:30] MED LIST changes: -ASPI-1197 PO; -ATOR40TA71 PO; -BISA5TAB12 PO
[2021-08-25] MEDS ORDERED: ATOR40TA71 PO (16:10)
[2021-08-25] MEDS ORDERED: BISA5TAB12 PO (16:10)
[2021-08-25] MEDS ORDERED: ASPI-1197 PO (16:10)
[2021-08-25] MEDS ORDERED: VANCOMYCIN PROTOCOL PER PHARMACY IV SCH (16:30)
[2021-08-25 16:52] LABS: BASOPHILS % (AUTO) 0.5 % (0.0-5.0); EOSINOPHILS % (AUTO) 9.5 % (0.0-8.0); HEMATOCRIT 40.3 % (42-54); LYMPHOCYTES % (AUTO) 20.8 % (21.0-51.0); MEAN CORPUSCULAR HEMOGLOBIN 29.3 pg (27.0-33.0); MEAN CORPUSCULAR HGB CONC 32.8 g/dL (32.0-36.0); MEAN CORPUSCULAR VOLUME 89.6 fL (79-99); MONOCYTES % (AUTO) 8.6 % (3.0-13.0); NEUTROPHILS % (AUTO) 60.3 % (40.0-77.0); PLATELET COUNT (AUTO) 228 K/uL (130-400); RED CELL DISTRIBUTION WIDTH 14.7 % (11.0-15.5); WHITE BLOOD COUNT (AUTO) 11.9 K/uL (4.8-10.8)
[2021-08-25] MEDS ORDERED: VANCOMYCIN 1.5GM/NS 250ML IV ONE ×2 (17:00)
[2021-08-25] MEDS ORDERED: CEFEPIME HCL 2 GM VIAL IVP ONE (17:00)
[2021-08-25 17:15] LABS: HEMOGLOBIN A1C 9.1 % (4.0-6.0)
[2021-08-25] MEDS ORDERED: VANCOMYCIN 1G/250ML KIT 500 ML IV ONE (17:26)
[2021-08-25 17:43] LABS: CRP QUANTITATIVE 18.5 mg/L (0.00-9.0)
[2021-08-25 18:37] LABS: CREATININE 1.4 mg/dL (0.5-1.5); POTASSIUM 3.8 mmol/L (3.5-5.1)
[2021-08-25 18:43] LABS: BILIRUBIN,TOTAL 0.3 mg/dL (0.2-1.0); TOTAL PROTEIN, SERUM 6.7 g/dL (6.0-8.3)
[2021-08-25] MEDS: INSULIN HUMULIN R 100 UNIT/ML 3ML SQ SCH (21:00)
[2021-08-25] MEDS: METOPROLOL TARTRATE 50 MG TAB PO SCH (21:46)
[2021-08-25] MEDS: METRONIDAZOLE 500MG/100ML BAG 100 ML IVPB SCH (21:47)
[2021-08-25 22:00] VITALS: BP 139/60
[2021-08-26 03:30] VITALS: BP 123/51
[2021-08-26] MEDS: METRONIDAZOLE 500MG/100ML BAG 100 ML IVPB SCH ×3 (06:39→21:37)
[2021-08-26] MEDS: INSULIN HUMULIN R 100 UNIT/ML 3ML SQ SCH ×3 (06:49→16:54)
[2021-08-26 07:00] VITALS: BP 109/38
[2021-08-26] MEDS: DIGOXIN 125 MCG TABLET PO SCH (08:22)
[2021-08-26] MEDS: ASPIRIN 81MG CHEW TAB PO SCH (08:22)
[2021-08-26] MEDS: TAMSULOSIN HCL 0.4 MG CAP.ER.24H PO SCH (08:22)
[2021-08-26] MEDS: METOPROLOL TARTRATE 50 MG TAB PO SCH ×2 (08:23→21:37)
[2021-08-26] MEDS: CLOPIDOGREL 75MG TAB PO SCH (08:23)
[2021-08-26] MEDS: ATORVASTATIN 40 MG TABLET PO SCH (08:23)
[2021-08-26] MEDS: LISINOPRIL 40 MG TABLET PO SCH (08:24)
[2021-08-26] MEDS: FENOFIBRIC ACID 135 MG PO SCH (08:25)
[2021-08-26] MEDS ORDERED: COMPOUND IV REFRIGERATED 1 EACH IVSOLN MISC PRN (12:00)
[2021-08-26 12:28] VITALS: BP 114/45
[2021-08-26] MEDS: PANTOPRAZOLE 40 MG/VIAL IVP SCH (12:50)
[2021-08-26] MEDS: VANCOMYCIN 1.5GM/NS 250ML IV SCH ×2 (12:57)
[2021-08-26] MEDS: ACETAMINOPHEN WITH CODEINE 1 TAB TAB PO PRN (15:50)
[2021-08-26 16:35] VITALS: BP 104/54
[2021-08-26] MEDS: CEFEPIME HCL 2 GM VIAL IVP SCH (16:55)
[2021-08-26] MEDS ORDERED: GLUCAGON 1MG KIT 1 MG ML IM PRN (17:30)
[2021-08-26] MEDS ORDERED: DEXTROSE 50%-WATER 50 ML DISP.SYRIN IV PRN (17:30)
[2021-08-26 19:36] VITALS: BP 136/60
[2021-08-26 23:20] VITALS: BP 114/57
[2021-08-27 03:58] VITALS: BP 136/55
[2021-08-27] MEDS: ACETAMINOPHEN WITH CODEINE 1 TAB TAB PO PRN (04:12)
[2021-08-27 05:12] LABS: HEMATOCRIT 37.4 % (42-54); MEAN CORPUSCULAR HEMOGLOBIN 28.7 pg (27.0-33.0); MEAN CORPUSCULAR HGB CONC 32.4 g/dL (32.0-36.0); MEAN CORPUSCULAR VOLUME 88.6 fL (79-99); RED BLOOD CELL COUNT(AUTO) 4.22 MIL/uL (4.50-6.20); RED CELL DISTRIBUTION WIDTH 14.5 % (11.0-15.5); WHITE BLOOD COUNT (AUTO) 10.3 K/uL (4.8-10.8)
[2021-08-27 05:20] LABS: CREATININE 1.5 mg/dL (0.5-1.5); POTASSIUM 4.3 mmol/L (3.5-5.1)
[2021-08-27] MEDS: METRONIDAZOLE 500MG/100ML BAG 100 ML IVPB SCH ×3 (05:50→21:27)
[2021-08-27] MEDS: INSULIN HUMULIN R 100 UNIT/ML 3ML SQ SCH ×6 (06:04→21:48)
[2021-08-27 08:00] VITALS: BP 132/54
[2021-08-27] MEDS: PANTOPRAZOLE 40 MG/VIAL IVP SCH (08:59)
[2021-08-27] MEDS: TAMSULOSIN HCL 0.4 MG CAP.ER.24H PO SCH (09:00)
[2021-08-27] MEDS: ATORVASTATIN 40 MG TABLET PO SCH (09:00)
[2021-08-27] MEDS: ASPIRIN 81MG CHEW TAB PO SCH (09:00)
[2021-08-27] MEDS: DIGOXIN 125 MCG TABLET PO SCH (09:00)
[2021-08-27] MEDS: LISINOPRIL 40 MG TABLET PO SCH (09:01)
[2021-08-27] MEDS: CLOPIDOGREL 75MG TAB PO SCH (09:01)
[2021-08-27] MEDS: METOPROLOL TARTRATE 50 MG TAB PO SCH ×2 (09:01→21:27)
[2021-08-27] MEDS: FENOFIBRIC ACID 135 MG PO SCH (09:03)
[2021-08-27 11:54] VITALS: BP 110/65
[2021-08-27] MEDS: VANCOMYCIN 1.5GM/NS 250ML IV SCH ×2 (13:13)
[2021-08-27 16:00] VITALS: BP 123/60
[2021-08-27] MEDS: CEFEPIME HCL 2 GM VIAL IVP SCH (17:03)
[2021-08-27 19:06] VITALS: BP 153/64
[2021-08-27 23:57] VITALS: BP 162/66
[2021-08-28 04:20] VITALS: BP 159/63
[2021-08-28 04:58] LABS: HEMATOCRIT 39.5 % (42-54); MEAN CORPUSCULAR HEMOGLOBIN 29.3 pg (27.0-33.0); MEAN CORPUSCULAR HGB CONC 32.9 g/dL (32.0-36.0); MEAN CORPUSCULAR VOLUME 89.2 fL (79-99); RED BLOOD CELL COUNT(AUTO) 4.43 MIL/uL (4.50-6.20); RED CELL DISTRIBUTION WIDTH 14.3 % (11.0-15.5); WHITE BLOOD COUNT (AUTO) 9.5 K/uL (4.8-10.8)
[2021-08-28 05:21] LABS: CREATININE 1.4 mg/dL (0.5-1.5); POTASSIUM 4.1 mmol/L (3.5-5.1)
[2021-08-28] MEDS: METRONIDAZOLE 500MG/100ML BAG 100 ML IVPB SCH ×3 (05:48→21:24)
[2021-08-28] MEDS: INSULIN HUMULIN R 100 UNIT/ML 3ML SQ SCH ×7 (06:02→20:34)
[2021-08-28 07:15] VITALS: BP 151/64
[2021-08-28] MEDS: FENOFIBRIC ACID 135 MG PO SCH (09:00)
[2021-08-28] MEDS: METOPROLOL TARTRATE 50 MG TAB PO SCH ×3 (09:00→20:31)
[2021-08-28] MEDS: PANTOPRAZOLE 40 MG/VIAL IVP SCH (09:06)
[2021-08-28] MEDS: TAMSULOSIN HCL 0.4 MG CAP.ER.24H PO SCH (09:08)
[2021-08-28] MEDS: DIGOXIN 125 MCG TABLET PO SCH (09:08)
[2021-08-28] MEDS: ASPIRIN 81MG CHEW TAB PO SCH (09:09)
[2021-08-28] MEDS: CLOPIDOGREL 75MG TAB PO SCH (09:09)
[2021-08-28] MEDS: ATORVASTATIN 40 MG TABLET PO SCH (09:09)
[2021-08-28] MEDS: LISINOPRIL 40 MG TABLET PO SCH (09:09)
[2021-08-28 10:45] VITALS: BP 135/56
[2021-08-28] MEDS: VANCOMYCIN 1.5GM/NS 250ML IV SCH ×2 (13:00)
[2021-08-28 15:00] VITALS: BP 139/57
[2021-08-28] MEDS: CEFEPIME HCL 2 GM VIAL IVP SCH (16:55)
[2021-08-28 19:11] VITALS: BP 163/71
[2021-08-28] MEDS: INSULIN GLARGINE 100 UNITS/ML 10 ML VIAL SQ SCH (20:33)
[2021-08-28 23:11] VITALS: BP 113/59
[2021-08-29 03:39] VITALS: BP 128/59
[2021-08-29 05:17] LABS: HEMATOCRIT 38.6 % (42-54); MEAN CORPUSCULAR HEMOGLOBIN 28.3 pg (27.0-33.0); MEAN CORPUSCULAR HGB CONC 32.4 g/dL (32.0-36.0); MEAN CORPUSCULAR VOLUME 87.5 fL (79-99); RED BLOOD CELL COUNT(AUTO) 4.41 MIL/uL (4.50-6.20); RED CELL DISTRIBUTION WIDTH 14.2 % (11.0-15.5); WHITE BLOOD COUNT (AUTO) 10.4 K/uL (4.8-10.8)
[2021-08-29 05:25] LABS: ALBUMIN 2.7 g/dL (3.5-5.0); CREATININE 1.4 mg/dL (0.5-1.5); POTASSIUM 3.7 mmol/L (3.5-5.1)
[2021-08-29] MEDS: METRONIDAZOLE 500MG/100ML BAG 100 ML IVPB SCH ×3 (05:47→21:07)
[2021-08-29] MEDS: INSULIN HUMULIN R 100 UNIT/ML 3ML SQ SCH ×7 (06:41→20:18)
[2021-08-29 07:15] VITALS: BP 161/68
[2021-08-29] MEDS: DIGOXIN 125 MCG TABLET PO SCH (08:19)
[2021-08-29] MEDS: PANTOPRAZOLE 40 MG/VIAL IVP SCH (08:20)
[2021-08-29] MEDS: LISINOPRIL 40 MG TABLET PO SCH (08:20)
[2021-08-29] MEDS: ATORVASTATIN 40 MG TABLET PO SCH (08:20)
[2021-08-29] MEDS: TAMSULOSIN HCL 0.4 MG CAP.ER.24H PO SCH (08:20)
[2021-08-29] MEDS: CLOPIDOGREL 75MG TAB PO SCH (08:20)
[2021-08-29] MEDS: FENOFIBRIC ACID 135 MG PO SCH (08:21)
[2021-08-29] MEDS: METOPROLOL TARTRATE 50 MG TAB PO SCH ×2 (08:21→20:21)
[2021-08-29] MEDS: ASPIRIN 81MG CHEW TAB PO SCH (08:21)
[2021-08-29 11:15] VITALS: BP 145/62
[2021-08-29] MEDS: VANCOMYCIN 1.5GM/NS 250ML IV SCH ×2 (14:44)
[2021-08-29 15:10] VITALS: BP 120/60
[2021-08-29] MEDS: CEFEPIME HCL 2 GM VIAL IVP SCH (16:35)
[2021-08-29 19:49] VITALS: BP 149/70
[2021-08-29] MEDS: INSULIN GLARGINE 100 UNITS/ML 10 ML VIAL SQ SCH (20:20)
[2021-08-29] MEDS: BISACODYL 5 MG TABLET.DR PO SCH (21:06)
[2021-08-29 23:51] VITALS: BP 149/92
[2021-08-30 03:20] VITALS: BP 132/65
[2021-08-30 04:57] LABS: HEMATOCRIT 38.9 % (42-54); MEAN CORPUSCULAR HEMOGLOBIN 28.9 pg (27.0-33.0); MEAN CORPUSCULAR HGB CONC 33.2 g/dL (32.0-36.0); MEAN CORPUSCULAR VOLUME 87.2 fL (79-99); RED BLOOD CELL COUNT(AUTO) 4.46 MIL/uL (4.50-6.20); RED CELL DISTRIBUTION WIDTH 14.2 % (11.0-15.5); WHITE BLOOD COUNT (AUTO) 9.6 K/uL (4.8-10.8)
[2021-08-30 05:11] LABS: CREATININE 1.3 mg/dL (0.5-1.5); POTASSIUM 3.7 mmol/L (3.5-5.1)
[2021-08-30] MEDS: METRONIDAZOLE 500MG/100ML BAG 100 ML IVPB SCH ×3 (05:32→21:51)
[2021-08-30] MEDS: INSULIN HUMULIN R 100 UNIT/ML 3ML SQ SCH ×7 (06:48→20:36)
[2021-08-30 07:15] VITALS: BP 132/57
[2021-08-30] MEDS: PANTOPRAZOLE 40 MG/VIAL IVP SCH (07:52)
[2021-08-30] MEDS: ASPIRIN 81MG CHEW TAB PO SCH (07:59)
[2021-08-30] MEDS: LISINOPRIL 40 MG TABLET PO SCH (08:00)
[2021-08-30] MEDS: TAMSULOSIN HCL 0.4 MG CAP.ER.24H PO SCH (08:00)
[2021-08-30] MEDS: ATORVASTATIN 40 MG TABLET PO SCH (08:00)
[2021-08-30] MEDS: DIGOXIN 125 MCG TABLET PO SCH (08:01)
[2021-08-30] MEDS: METOPROLOL TARTRATE 50 MG TAB PO SCH ×2 (08:01→20:34)
[2021-08-30] MEDS: FENOFIBRIC ACID 135 MG PO SCH (08:01)
[2021-08-30 10:50] VITALS: BP 134/59
[2021-08-30 15:20] VITALS: BP 132/61
[2021-08-30] MEDS: VANCOMYCIN 1.5GM/NS 250ML IV SCH ×2 (15:32)
[2021-08-30] MEDS: CEFEPIME HCL 2 GM VIAL IVP SCH (16:33)
[2021-08-30 20:14] VITALS: BP 112/73
[2021-08-30] MEDS: INSULIN GLARGINE 100 UNITS/ML 10 ML VIAL SQ SCH (20:36)
[2021-08-30 23:49] VITALS: BP 161/75
[2021-08-31 03:59] VITALS: BP 132/62
[2021-08-31 05:35] LABS: HEMATOCRIT 40.8 % (42-54); MEAN CORPUSCULAR HEMOGLOBIN 28.2 pg (27.0-33.0); MEAN CORPUSCULAR HGB CONC 31.9 g/dL (32.0-36.0); MEAN CORPUSCULAR VOLUME 88.5 fL (79-99); RED BLOOD CELL COUNT(AUTO) 4.61 MIL/uL (4.50-6.20); RED CELL DISTRIBUTION WIDTH 14.1 % (11.0-15.5); WHITE BLOOD COUNT (AUTO) 11.3 K/uL (4.8-10.8)
[2021-08-31 05:44] LABS: CREATININE 1.5 mg/dL (0.5-1.5)
[2021-08-31] MEDS: METRONIDAZOLE 500MG/100ML BAG 100 ML IVPB SCH ×3 (06:25→22:13)
[2021-08-31] MEDS: INSULIN HUMULIN R 100 UNIT/ML 3ML SQ SCH ×7 (06:29→21:14)
[2021-08-31 08:00] VITALS: BP 144/64
[2021-08-31] MEDS: ATORVASTATIN 40 MG TABLET PO SCH (09:00)
[2021-08-31] MEDS: DIGOXIN 125 MCG TABLET PO SCH (09:00)
[2021-08-31] MEDS: FENOFIBRIC ACID 135 MG PO SCH (09:00)
[2021-08-31] MEDS: ASPIRIN 81MG CHEW TAB PO SCH (09:00)
[2021-08-31] MEDS: TAMSULOSIN HCL 0.4 MG CAP.ER.24H PO SCH (09:00)
[2021-08-31] MEDS: METOPROLOL TARTRATE 50 MG TAB PO SCH ×2 (10:14→20:46)
[2021-08-31] MEDS: PANTOPRAZOLE 40 MG/VIAL IVP SCH (10:14)
[2021-08-31] MEDS: LISINOPRIL 40 MG TABLET PO SCH (10:14)
[2021-08-31 12:00] VITALS: BP 145/60
[2021-08-31 16:00] VITALS: BP 139/60
[2021-08-31] MEDS: VANCOMYCIN 1.5GM/NS 250ML IV SCH ×2 (16:09)
[2021-08-31] MEDS: CEFEPIME HCL 2 GM VIAL IVP SCH (20:46)
[2021-08-31] MEDS: INSULIN GLARGINE 100 UNITS/ML 10 ML VIAL SQ SCH (21:15)
[2021-08-31 21:32] VITALS: BP 151/77
[2021-09-01] VITALS (23 sets, daily range): BP systolic 120–161; BP diastolic 51–86
[2021-09-01 04:40] LABS: BASOPHILS % (AUTO) 0.8 % (0.0-5.0); EOSINOPHILS % (AUTO) 8.8 % (0.0-8.0); HEMATOCRIT 39.4 % (42-54); LYMPHOCYTES % (AUTO) 18.7 % (21.0-51.0); MEAN CORPUSCULAR HEMOGLOBIN 28.9 pg (27.0-33.0); MEAN CORPUSCULAR HGB CONC 32.7 g/dL (32.0-36.0); MEAN CORPUSCULAR VOLUME 88.1 fL (79-99); MONOCYTES % (AUTO) 9.6 % (3.0-13.0); NEUTROPHILS % (AUTO) 61.8 % (40.0-77.0); PLATELET COUNT (AUTO) 240 K/uL (130-400); RED BLOOD CELL COUNT(AUTO) 4.47 MIL/uL (4.50-6.20); RED CELL DISTRIBUTION WIDTH 14.2 % (11.0-15.5); WHITE BLOOD COUNT (AUTO) 10.6 K/uL (4.8-10.8)
[2021-09-01 04:55] LABS: ALBUMIN 2.7 g/dL (3.5-5.0); BILIRUBIN,TOTAL 0.3 mg/dL (0.2-1.0); CREATININE 1.6 mg/dL (0.5-1.5); TOTAL PROTEIN, SERUM 6.3 g/dL (6.0-8.3)
[2021-09-01] MEDS ORDERED: 0.9%NACL 1000ML 1,000 ML IV ONE (05:56)
[2021-09-01] MEDS: METRONIDAZOLE 500MG/100ML BAG 100 ML IVPB SCH ×3 (06:00→21:24)
[2021-09-01] MEDS: INSULIN HUMULIN R 100 UNIT/ML 3ML SQ SCH ×7 (06:30→21:00)
[2021-09-01] MEDS ORDERED: ROPIVACAINE 0.5% 5MG/ML 30ML IJ ONE (06:31)
[2021-09-01] MEDS ORDERED: PROPOFOL 1000 MG/100 ML 100 ML IV ONE (06:31)
[2021-09-01] MEDS ORDERED: KETAMINE 50MG/ML SYRINGE 50 MG/ML DISP.SYRIN IV ONE (06:31)
[2021-09-01 06:32] LABS: INR 1.09 (0.85-1.15); PROTHROMBIN TIME 11.8 SEC (9.6-11.6)
[2021-09-01 06:33] LABS: PARTIAL THROMBOPLASTIN TIME 28.7 SEC (26.3-35.5)
[2021-09-01] MEDS ORDERED: MIDAZOLAM HCL 1 MG/ML 2ML VIAL ONE (06:34)
[2021-09-01] MEDS ORDERED: EPHEDRINE SULFATE 50 MG/ML AMPULE ONE (07:27)
[2021-09-01] MEDS: FENOFIBRIC ACID 135 MG PO SCH (09:00)
[2021-09-01] MEDS ORDERED: CEFAZOLIN SODIUM 2 GM VIAL IV SCH (10:00)
[2021-09-01] MEDS: LISINOPRIL 40 MG TABLET PO SCH (12:05)
[2021-09-01] MEDS: TAMSULOSIN HCL 0.4 MG CAP.ER.24H PO SCH (12:05)
[2021-09-01] MEDS: ASPIRIN 81MG CHEW TAB PO SCH (12:05)
[2021-09-01] MEDS: ATORVASTATIN 40 MG TABLET PO SCH (12:06)
[2021-09-01] MEDS: DIGOXIN 125 MCG TABLET PO SCH (12:06)
[2021-09-01] MEDS: METOPROLOL TARTRATE 50 MG TAB PO SCH ×2 (12:06→21:23)
[2021-09-01] MEDS: PANTOPRAZOLE 40 MG/VIAL IVP SCH (12:07)
[2021-09-01] MEDS: CEFAZOLIN SODIUM 1 GM VIAL IV SCH ×2 (12:14→21:22)
[2021-09-01] MEDS: VANCOMYCIN 1.5GM/NS 250ML IV SCH ×2 (14:30)
[2021-09-01] MEDS: INSULIN GLARGINE 100 UNITS/ML 10 ML VIAL SQ SCH (21:16)
[2021-09-01] MEDS: CEFEPIME HCL 2 GM VIAL IVP SCH (21:23)
[2021-09-02 00:08] VITALS: BP 138/84
[2021-09-02 04:17] VITALS: BP 141/62
[2021-09-02 05:30] LABS: BASOPHILS % (AUTO) 0.5 % (0.0-5.0); EOSINOPHILS % (AUTO) 5.5 % (0.0-8.0); HEMATOCRIT 38.1 % (42-54); LYMPHOCYTES % (AUTO) 16.3 % (21.0-51.0); MEAN CORPUSCULAR HEMOGLOBIN 28.4 pg (27.0-33.0); MEAN CORPUSCULAR HGB CONC 32.5 g/dL (32.0-36.0); MEAN CORPUSCULAR VOLUME 87.4 fL (79-99); MONOCYTES % (AUTO) 10.6 % (3.0-13.0); NEUTROPHILS % (AUTO) 66.9 % (40.0-77.0); PLATELET COUNT (AUTO) 208 K/uL (130-400); RED BLOOD CELL COUNT(AUTO) 4.36 MIL/uL (4.50-6.20); RED CELL DISTRIBUTION WIDTH 14.2 % (11.0-15.5); WHITE BLOOD COUNT (AUTO) 12.6 K/uL (4.8-10.8)
[2021-09-02 05:49] LABS: ALBUMIN 2.5 g/dL (3.5-5.0); BILIRUBIN,TOTAL 0.5 mg/dL (0.2-1.0); CREATININE 1.1 mg/dL (0.5-1.5); POTASSIUM 3.6 mmol/L (3.5-5.1); TOTAL PROTEIN, SERUM 6.1 g/dL (6.0-8.3)
[2021-09-02] MEDS: METRONIDAZOLE 500MG/100ML BAG 100 ML IVPB SCH (06:22)
[2021-09-02] MEDS: ACETAMINOPHEN WITH CODEINE 1 TAB TAB PO PRN ×2 (06:22→22:36)
[2021-09-02] MEDS: INSULIN HUMULIN R 100 UNIT/ML 3ML SQ SCH ×7 (06:37→20:45)
[2021-09-02 07:00] VITALS: BP 137/58
[2021-09-02] MEDS: FENOFIBRIC ACID 135 MG PO SCH (09:00)
[2021-09-02] MEDS: METOPROLOL TARTRATE 50 MG TAB PO SCH ×2 (10:06→20:42)
[2021-09-02] MEDS: ASPIRIN 81MG CHEW TAB PO SCH (10:06)
[2021-09-02] MEDS: PANTOPRAZOLE 40 MG/VIAL IVP SCH (10:06)
[2021-09-02] MEDS: TAMSULOSIN HCL 0.4 MG CAP.ER.24H PO SCH (10:06)
[2021-09-02] MEDS: ATORVASTATIN 40 MG TABLET PO SCH (10:07)
[2021-09-02] MEDS: LISINOPRIL 40 MG TABLET PO SCH (10:07)
[2021-09-02] MEDS: DIGOXIN 125 MCG TABLET PO SCH (10:07)
[2021-09-02 11:50] VITALS: BP 143/59
[2021-09-02 15:55] VITALS: BP 144/59
[2021-09-02 20:08] VITALS: BP 149/58
[2021-09-02] MEDS: INSULIN GLARGINE 100 UNITS/ML 10 ML VIAL SQ SCH (20:44)
[2021-09-02] MEDS ORDERED: LEVO75 PO (20:51)
[2021-09-03 00:13] VITALS: BP 138/66
[2021-09-03 04:56] VITALS: BP 139/58
[2021-09-03] MEDS: INSULIN HUMULIN R 100 UNIT/ML 3ML SQ SCH ×7 (06:28→20:51)
[2021-09-03 07:00] VITALS: BP 146/57
[2021-09-03] MEDS: DIGOXIN 125 MCG TABLET PO SCH (08:56)
[2021-09-03] MEDS: LISINOPRIL 40 MG TABLET PO SCH (08:56)
[2021-09-03] MEDS: ATORVASTATIN 40 MG TABLET PO SCH (08:56)
[2021-09-03] MEDS: ASPIRIN 81MG CHEW TAB PO SCH (08:56)
[2021-09-03] MEDS: TAMSULOSIN HCL 0.4 MG CAP.ER.24H PO SCH (08:56)
[2021-09-03] MEDS: METOPROLOL TARTRATE 50 MG TAB PO SCH ×2 (08:56→20:47)
[2021-09-03] MEDS: FENOFIBRIC ACID 135 MG PO SCH (08:57)
[2021-09-03] MEDS: PANTOPRAZOLE 40 MG/VIAL IVP SCH (08:57)
[2021-09-03] MEDS: BISACODYL 5 MG TABLET.DR PO SCH (09:00)
[2021-09-03 11:00] VITALS: BP 139/53
[2021-09-03 15:00] VITALS: BP 130/51
[2021-09-03 20:30] VITALS: BP 136/55
[2021-09-03] MEDS: INSULIN GLARGINE 100 UNITS/ML 10 ML VIAL SQ SCH (20:51)
== END 2021-09-03 22:15 | DRG 475 ==
LOC: EDH 15:30 → EDHIP 15:31 → 3AH 21:46
PROVIDERS: ADMIT Hospitalist; ATTEND Hospitalist
PROC: 0Y6H0Z2 Detachment at Right Lower Leg, Mid, Open Approach (ICD-10-PCS; principal; 2021-09-01 06:30)
DX: T87.81 Dehiscence of amputation stump (principal); L03.115 Cellulitis of right lower limb; L97.518 Non-pressure chronic ulcer of other part of right foot with other specified severity; E11.51 Type 2 diabetes mellitus with diabetic peripheral angiopathy without gangrene; E11.69 Type 2 diabetes mellitus with other specified complication; E11.42 Type 2 diabetes mellitus with diabetic polyneuropathy; E11.22 Type 2 diabetes mellitus with diabetic chronic kidney disease; N18.30 Chronic kidney disease, stage 3 unspecified; Z20.822 Contact with and (suspected) exposure to COVID-19; I12.9 Hypertensive chronic kidney disease with stage 1 through stage 4 chronic kidney disease, or unspecified chronic kidney disease; F17.210 Nicotine dependence, cigarettes, uncomplicated; E78.5 Hyperlipidemia, unspecified; E11.621 Type 2 diabetes mellitus with foot ulcer; I25.10 Atherosclerotic heart disease of native coronary artery without angina pectoris; Y83.5 Amputation of limb(s) as the cause of abnormal reaction of the patient, or of later complication, without mention of misadventure at the time of the procedure; Z83.3 Family history of diabetes mellitus
CPT/HCPCS: 36415; 71045; 73630; 73718; 80048; 80053; 80202; 82040; 82550; 82948; 83036; 84145; 84436; 84443; 85025; 85027; 85610; 85651; 85730; 86140; 87040; 87070; 87076; 87635; 93925; 93970; C9113; G0378; J0690; J0692; J1815; J2250; J2704; J2795; J3370; J3490; J7030; J7050

== ENCOUNTER → 2023-08-08 | Outpatient (CLI) | payer OTHER ==
[~2023-08-08] MED LIST changes: +ASPI-1197 PO; +ATOR40TA71 PO; +BISA-151 PO; -CEPH500B PO; +LEVO75 PO; +[UNRECOGNIZED DRUG - CODE] PO; -[UNRECOGNIZED DRUG - CODE] PO
[2023-08-08 12:12] LABS: BASOPHILS # (AUTO) 0.05 K/uL (0.00-0.20); BASOPHILS % (AUTO) 0.5 % (0.0-5.0); EOSINOPHILS # (AUTO) 0.92 K/uL (0.00-0.70); EOSINOPHILS % (AUTO) 8.6 % (0.0-8.0); IMMATURE GRANULOCYTE ABSOLUTE 0.05 K/uL (0-1); LYMPHOCYTES # (AUTO) 1.8 K/uL (1.0-4.8); LYMPHOCYTES % (AUTO) 16.8 % (21.0-51.0); MEAN CORPUSCULAR HEMOGLOBIN 29.7 pg (27.0-33.0); MEAN CORPUSCULAR HGB CONC 31.9 g/dL (32.0-36.0); MEAN CORPUSCULAR VOLUME 93.1 fL (79-99); NEUTROPHILS # (AUTO) 6.9 K/uL (1.8-7.7); NEUTROPHILS % (AUTO) 64.6 % (40.0-77.0); PLATELET COUNT (AUTO) 170 K/uL (130-400); RED BLOOD CELL COUNT(AUTO) 5.05 MIL/uL (4.50-6.20); RED CELL DISTRIBUTION WIDTH 13.8 % (11.0-15.5); WHITE BLOOD COUNT (AUTO) 10.7 K/uL (4.8-10.8)
[2023-08-08 12:24] LABS: HEMOGLOBIN A1C 9.9 % (4.0-6.0)
[2023-08-08 12:49] LABS: ALBUMIN 3.1 g/dL (3.5-5.0); BILIRUBIN,TOTAL 0.4 mg/dL (0.2-1.0); CREATININE 1.2 mg/dL (0.5-1.3); POTASSIUM 4.8 mmol/L (3.5-5.1); THYROID STIMULATING HORMONE 6.23 uIU/mL (0.36-3.74); TOTAL PROTEIN, SERUM 6.8 g/dL (6.0-8.3)
== END | disposition home or self-care (01) ==
LOC: LAB 09:56
PROVIDERS: ATTEND Student in an Organized Health Care Education/Training Program
DX: I48.0 Paroxysmal atrial fibrillation (principal); I10 Essential (primary) hypertension; E78.5 Hyperlipidemia, unspecified; I21.A1 Myocardial infarction type 2; I25.2 Old myocardial infarction; M25.512 Pain in left shoulder; R06.02 Shortness of breath; Z79.899 Other long term (current) drug therapy; Z79.84 Long term (current) use of oral hypoglycemic drugs
CPT/HCPCS: 36415; 80053; 80061; 83036; 84443; 85025

== ENCOUNTER → 2023-08-20 | Outpatient (CLI) | payer OTHER | END | disposition home or self-care (01) | LOC: SHCH 13:29 | PROVIDERS: ATTEND Student in an Organized Health Care Education/Training Program | DX: I35.8 Other nonrheumatic aortic valve disorders (principal); R06.02 Shortness of breath | CPT/HCPCS: 93306 ==

== ENCOUNTER → 2023-08-22 | Outpatient (CLI) | payer OTHER | END | disposition home or self-care (01) | LOC: RAH 08:20 | PROVIDERS: ATTEND Student in an Organized Health Care Education/Training Program | DX: R05.9 Cough, unspecified (principal); M75.102 Unspecified rotator cuff tear or rupture of left shoulder, not specified as traumatic | CPT/HCPCS: 71046; 73030 ==

== ENCOUNTER → 2023-08-30 | Outpatient (CLI) | payer OTHER ==
[~2023-08-30] MED LIST changes: +IOHEXOL 350 MG/ML 100ML INFUS..BTL IV ONE; +METOPROLOL TARTRATE 1 MG/ML 5ML VIAL IV ONE
== END | disposition home or self-care (01) ==
LOC: RAH 10:52
PROVIDERS: ATTEND Student in an Organized Health Care Education/Training Program
DX: I70.8 Atherosclerosis of other arteries (principal); R07.9 Chest pain, unspecified
CPT/HCPCS: 75574; J3490; Q9967

== ENCOUNTER 2023-12-12 05:50 | Day surgery (SDC) | payer OTHER ==
[2023-12-09 10:53] LABS: BASOPHILS # (AUTO) 0.03 K/uL (0.00-0.20); BASOPHILS % (AUTO) 0.3 % (0.0-5.0); EOSINOPHILS # (AUTO) 0.31 K/uL (0.00-0.70); EOSINOPHILS % (AUTO) 3.1 % (0.0-8.0); HEMATOCRIT 43.1 % (42-54); IMMATURE GRANULOCYTE ABSOLUTE 0.05 K/uL (0-1); LYMPHOCYTES # (AUTO) 1.9 K/uL (1.0-4.8); LYMPHOCYTES % (AUTO) 18.9 % (21.0-51.0); MEAN CORPUSCULAR HEMOGLOBIN 30.1 pg (27.0-33.0); MEAN CORPUSCULAR HGB CONC 32.5 g/dL (32.0-36.0); MEAN CORPUSCULAR VOLUME 92.7 fL (79-99); MONOCYTES # (AUTO) 0.8 K/uL (0.1-1.0); MONOCYTES % (AUTO) 8.3 % (3.0-13.0); NEUTROPHILS # (AUTO) 6.9 K/uL (1.8-7.7); NEUTROPHILS % (AUTO) 68.9 % (40.0-77.0); PLATELET COUNT (AUTO) 174 K/uL (130-400); RED BLOOD CELL COUNT(AUTO) 4.65 MIL/uL (4.50-6.20); RED CELL DISTRIBUTION WIDTH 14.1 % (11.0-15.5)
[2023-12-09 11:04] LABS: INR 1.07 (0.85-1.15); PROTHROMBIN TIME 11.5 SEC (9.6-11.6)
[2023-12-09 11:06] LABS: PARTIAL THROMBOPLASTIN TIME 28.2 SEC (26.3-35.5)
[2023-12-09 11:17] LABS: CREATININE 1.4 mg/dL (0.5-1.3); POTASSIUM 4.3 mmol/L (3.5-5.1)
[2023-12-09 11:32] VITALS: BP 171/78; PULSE 66; RESP 16
[2023-12-12] VITALS (11 sets, daily range): BP systolic 120–148; BP diastolic 51–60; PULSE 49–59; RESP 14–18
[~2023-12-12] VITALS: Ht 165.1 cm; Wt 81.6 kg
[~2023-12-12 05:50] MED LIST changes: -BISA-151 PO; -FENO135C4 PO; -FOLI1TAB85 PO; +HUMLIS7525 SQ; -IOHEXOL 350 MG/ML 100ML INFUS..BTL IV ONE; -LEVO75 PO; -METOPROLOL TARTRATE 1 MG/ML 5ML VIAL IV ONE; -[UNRECOGNIZED DRUG - CODE] PO
[2023-12-12] MEDS ORDERED: IOHEXOL 350 MG/ML 100ML INFUS..BTL IV ONE (07:18)
[2023-12-12] MEDS ORDERED: LIDOCAINE HCL 400MG/20ML VIAL ONE (07:18)
[2023-12-12] MEDS ORDERED: HEPARIN 10,000 UNIT/10ML (1,000 UNIT/ML) VIAL ONE (07:19)
[2023-12-12] MEDS ORDERED: VERAPAMIL HCL 2.5 MG/ML VIAL ONE (07:19)
[2023-12-12] MEDS ORDERED: NITROGLYCERIN 50MG VIAL ONE (07:20)
[2023-12-12] MEDS: 0.9%NACL 1000ML 1,000 ML IV ONE (07:21)
[2023-12-12] MEDS ORDERED: FENTANYL CITRATE PF 50 MCG/1 ML 2ML VIAL ONE (07:29)
[2023-12-12] MEDS ORDERED: MIDAZOLAM HCL 1 MG/ML 2ML VIAL ONE (07:30)
[2023-12-12] MEDS ORDERED: DEXTROSE 50%-WATER 50 ML DISP.SYRIN IV PRN (08:30)
[2023-12-12] MEDS ORDERED: GLUCAGON 1MG KIT 1 MG ML IM PRN (08:30)
[2023-12-12] MEDS ORDERED: 0.9%NACL 1000ML 1,000 ML IV SCH (08:30)
== END 2023-12-12 14:50 | disposition home or self-care (01) ==
LOC: DAH 05:50
PROVIDERS: ATTEND Student in an Organized Health Care Education/Training Program
DX: I25.42 Coronary artery dissection (principal); I25.118 Atherosclerotic heart disease of native coronary artery with other forms of angina pectoris; I70.8 Atherosclerosis of other arteries; M25.512 Pain in left shoulder; R06.02 Shortness of breath; E11.51 Type 2 diabetes mellitus with diabetic peripheral angiopathy without gangrene; I45.10 Unspecified right bundle-branch block; I48.0 Paroxysmal atrial fibrillation; I10 Essential (primary) hypertension; E78.5 Hyperlipidemia, unspecified; Z79.84 Long term (current) use of oral hypoglycemic drugs; Z79.01 Long term (current) use of anticoagulants; Z79.899 Other long term (current) drug therapy
CPT/HCPCS: 80048; 85025; 85610; 85730; 36415; 71045; 93005; 93458; 36215; 75710; 82948; C1887; C1769; C1894 ×2; C1760; Q9965; J3010; J3490 ×2; J7030; J1644 ×2; J2250; Q9967; A4215; A4222; A4221; A4663; A4216; A4606; A4223 ×3; 36217; 96360; 96361; 99156; 99157